=== PATIENT | male | born 1960 | race Caucasian/White ===

== ENCOUNTER 2019-07-29 14:34 | Outpatient (CLI) | payer BC ==
[2019-07-29 21:16] VITALS: BP 168/108
--- NOTE | 2019-07-29 21:16 | SLEEP CARE CONSULTATION ---
Information from patient questionnaire entered by Noa Song. I have reviewed and concur with the information entered by Noa Song. This document represents the service I personally performed and the decisions made by me, Carina Arndt MD, [facility]. History of Present Illness Reason for Visit: New patient, Previously diagnosed sleep apnea, sleep apnea on CPAP therapy Chief Complaint: reports: Other (renew precription) Duration of Symptoms: 20 years Usual bedtime: 2100 Time it takes to fall asleep: 15 minutes Snores at night: Yes Observed to quit breathing while asleep: Yes Sleeps alone due to snoring: No Number of times waking at night: 0-1 Reasons for waking at night: reports: Other (yes, if i do not use CPAP) Toss, Turn, or Twitch while sleeping: No Recalls having dreams: Yes Usually gets out of bed at: 0500 Feels refreshed in the morning: Yes Morning headache: No Sleepy or fatigued during the day: No Ever fallen asleep while driving: No Takes day naps: No Dreams during day naps: No Prior sleep studies: Yes Year and Where: 2009 Additional HPI information: I had the pleasure of seeing Mr. Townsend today regarding obstructive sleep apnea-hypopnea. As you know, he is a 58 year old gentleman who was diagnosed with the sleep-disordered breathing at [place], [place] in 2009. The AHI was 74. He was prescribed a CPAP device set at 7 12 cmH2O. He uses every night and all night. The compliance data show usage in 175 out of the past 180 nights, averaging 7.4 hours a night. The residual AHI is 2.8 and average time in large leak per day is 19 seconds. He wears a ResMed Quattro full face mask. He gets his supplies from a durable medical supplier in [place]. He finds the treatment very beneficial. 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 Patient is and lives in [place]. Have you smoked in the past 12 months: No Alcohol use: Yes Alcohol amount and frequency: 1-2/day Caffeine use: Yes Caffeine amount and frequency: 2 black tea/day Family History Family history of sleep disordered breathing: Yes Allergies and Home Medications Drug allergies reviewed: Yes Home medication list reviewed: Yes Review of Systems Weight gain over past 5 years: 20 Cardiovascular: denies: high blood pressure, palpitations, chest pain, irregular heart rate or pulse, leg or foot swelling, have to sleep sitting up, other Respiratory: denies: shortness of breath, wheeze, sputum production, chronic cough, other Gastrointestinal: reports: heartburn, diarrhea Urinary: denies: incontinence, frequency, urgency, impotence, other Neurological: reports: headaches Psychiatric: denies: Attention Deficit Hyperactivity, anxiety, depression, mood disorder, claustrophobia, other Ear/Nose/Throat: reports: nasal congestion, sinus problems Endocrine: denies: thyroid disease, history of goiter, sluggishness, too hot or cold, excessive thirst, increased appetite, increased urination, unexplained weakness, other Musculoskeletal: denies: joint pain, neck pain, back pain, joint swelling, muscle pain or cramping, mobility problems, other Immunologic: reports: sneezing, allergies to food or environment Physical Exam Vital signs obtained and entered by: Dr. Carina Arndt Blood Pressure: 168/108 Cuff size: regular Heart Rate: 63 O2 Saturation: 95 Height: 6 ft 3 in Weight: 265 lb Body Mass Index: 33.1 BMI Classification: Obesity Class 1 Neck circumference: 18.5 Mood/affect: normal HEENT: No craniofacial malformation Nostrils: patent to airflow Turbinates: normal Septum: midline Mouth and throat: narrow oropharynx Soft palate: long Hard palate: normal Uvula: normal Uvula visualization: 50% Mallampati Class II Tongue: normal in size Tonsils: small Chin and jaw: normal size and position Neck: normal w/o lymphadenopathy or thyromegaly Heart: regular rate and rhythm Lungs: clear bilaterally Abdomen: soft, non-tender Extremities: no edema or clubbing Neurologic: intact, no focal deficits Impression and Plan IMPRESSION: 1. Obstructive Sleep Apnea-Hypopnea Syndrome, very severe, as previously diagnosed. The patient has had good treatment compliance. The current pressure setting appears effective and comfortable. The patient experiences improvement on the treatment. Narrow oropharynx and obesity are common predisposing factors for obstructive sleep apnea-hypopnea syndrome. Because the CPAP is now older than the useful life of 5 years, I will order the patient a new one and make it an autoCPAP set between 7 and 12 cmH2O. Plan: 1. Prescription made for an autoCPAP, heated humidifier, and related supplies. 2. Avoid long distance driving or when feeling sleepy. 3. Avoid alcohol, sedative and muscle relaxant around bedtime. 4. Attempt to lose weight. I spent 100% of this 20 minute visit face to face with the patient with greater than 50% of this was spent time counseling the patient and coordination of care.
== END 2019-07-29 14:35 | disposition home or self-care (01) ==
LOC: SC 14:34
PROVIDERS: ATTEND Internal Medicine Pulmonary Disease
DX: G47.33 Obstructive sleep apnea (adult) (pediatric) (principal)
CPT/HCPCS: 99203; 99212

== ENCOUNTER 2020-08-06 08:23 | Outpatient (CLI) | payer OTHER ==
--- NOTE | 2020-08-06 09:07 | SLEEP CARE CONSULTATION ---
Information from patient questionnaire entered by Ledy Hemphill. I have reviewed and concur with the information entered by Ledy Hemphill. This document represents the service I personally performed and the decisions made by , Stephany Yuen ARNP. History of Present Illness Service Date and Time: 08/06/2020822 Previous diagnosis: Very Severe, Obstructive Sleep Apnea-Hypopnea Syndrome AHI: 74 (in 2007) Reason for follow up: first compliance after device update Equipment type: CPAP Equipment obtained from: [employer] (getting supplies as needed) Mask style: Full face Mask brand: Resmed Backup mask available: Yes (old mask) Last cushion change: 2 months ago Prior sleep studies: Yes Year and Where: 2007 - in [place], [place] HPI additional information: JOHN MCCRACKEN was diagnosed to have very severe, AHI 74, obstructive sleep apnea-hypopnea syndrome and returned today for CPAP therapy first compliance after device update follow-up. CPAP Compliance Data - Data Reviewed with Patient Average duration of nightly device use: 7 hr 29 min Compliance rate %: 100 Current pressure setting (cmH2O): 7-12 Humidity settin Heated hose settin Average residual AHI: 3.6 Average large leak: 0 Subjective Patient concerns: reports: other (feels stuffy ). denies: aerophagia, mask discomfort, air blowing in eyes, mask leak noise, condensation in mask/hose, nasal congestion, dry mouth, nose, throat, epistaxis Observed to snore while using device: No Current pressure setting perceived as: comfortable On therapy, patient: reports: sleeping better, awakening more refreshed, being more awake and alert during the day, more rested overall. denies: drowsiness while driving Initial [place] Sleepiness Scale score: 2 (in 2019) Current [place] Sleepiness Scale score: 5 Allergies and Home Medications Drug allergies reviewed: Yes (NKDA) Home medication list reviewed: Yes (no changes) Review of Systems Review of systems same as previous: Yes (no changes) Physical Exam Heart Rate: 65 O2 Saturation: 94 Height: 6 ft 3 in Weight: 267 lb Body Mass Index: 33.3 BMI Classification: Obese Impression and Plan 1. Obstructive Sleep Apnea-Hypopnea Syndrome, very severe, with excellent treatment compliance and good apnea control. On CPAP therapy, the patient has better sleep quality and is more rested overall. He is doing well with the new machine. He asked about adjusting the humidity setting and I verbally discussed how to adjust on hew machine. He was encouraged to YouTube instructions if unable to do from my instructions. He voiced understanding. Patient's apnea severity and rationale for treatment to reduce apnea, improve sleep quality and reduce cardiovascular and cerebrovascular events was reviewed. I also reviewed the benefit of consistent device use of CPAP for his gastric reflux. * Continue auto CPAP pressure at 7-12 cmH2O * Notify me if snoring with mask or feeling that the pressure is too much or too little * Attempt to lose weight * Call this office if any problems using CPAP * Return for follow up in 1 year, or sooner if concerns arise Counseling Topics: Spare mask, Weight loss health impact Visit Type: In Office Time Spent with Patient (minutes): 15 Provider Statement: I spent 100% of the Face to Face Visit with the patient with greater than 50% spent counseling the patient and coordination of care.
== END 2020-08-06 08:24 | disposition home or self-care (01) ==
LOC: SC 08:23
PROVIDERS: ATTEND Nurse Practitioner Family
DX: G47.33 Obstructive sleep apnea (adult) (pediatric) (principal); E66.9 Obesity, unspecified; Z68.30 Body mass index [BMI] 30.0-30.9, adult
CPT/HCPCS: 99212; 99213

== ENCOUNTER 2022-11-09 08:26 | Outpatient (CLI) | payer BC ==
[2022-11-09 08:59] VITALS: BP 110/70
--- NOTE | 2022-11-09 08:59 | SLEEP CARE CONSULTATION ---
Information from patient questionnaire entered by Nadia Corral. I have reviewed and concur with the information entered by Nadia Corral. This document represents the service I personally performed and the decisions made by , Stephany Yuen ARNP. History of Present Illness Service Date and Time: 11/09/2022825 Previous diagnosis: Very Severe, Obstructive Sleep Apnea-Hypopnea Syndrome AHI: 74 (in 2007) Reason for follow up: annual (LAST SEEN 07/2020) Equipment type: CPAP (GASTELUM Dreamstation recertified; s/u 05/2026) Equipment obtained from: [employer] (getting supplies as needed) Mask style: Full face Mask brand: Resmed (Mirage Quattro) Backup mask available: Yes (old mask) Last cushion change: couple months Prior sleep studies: Yes Year and Where: 2007 - in [place], [place] HPI additional information: JOHN MCCRACKEN was diagnosed to have very severe, AHI 74.0, obstructive sleep apnea-hypopnea syndrome and returned today for CPAP therapy annual follow-up. Sleep Study - Results Prior sleep studies: Yes Year and Where: 2007 - in [place], [place] CPAP Compliance Data - Data Reviewed with Patient Average duration of nightly device use: 7 HRS 18 MINS 45SECS Compliance rate %: 86.1 (05/11/22-11/06/22; 157/180 days used) Current pressure setting (cmH2O): 7-12 Average residual AHI: 3.4 Central apnea: 0.1 Obstructive apnea: 0.9 Hypopnea: 2.4 Subjective Missed days of use due to: reports: travel (he used his old CPAP when travelling) Patient concerns: denies: aerophagia, air blowing in eyes, mask leak noise, condensation in mask/hose, nasal congestion, dry mouth, nose, throat, epistaxis Observed to snore while using device: No Current pressure setting perceived as: comfortable On therapy, patient: reports: sleeping better, awakening more refreshed, being more awake and alert during the day, more rested overall. denies: drowsiness while driving Initial [place] Sleepiness Scale score: 2 (in 2019) Current [place] Sleepiness Scale score: 4 (11/09/22) Allergies and Home Medications Known drug allergies: No Drug allergies reviewed: Yes Home medication list reviewed: No (no changes) Review of Systems Review of systems same as previous: No (Hernia) Physical Exam Vital signs obtained and entered by: NADIA Oropeza MA Blood Pressure: 110/70 (LEFT ARM) Cuff size: regular Heart Rate: 80 O2 Saturation: 98 Height: 6 ft 3 in Weight: 260 lb 12.8 oz Weight change since last visit: 7 lb loss Body Mass Index: 32.5 BMI Classification: Obese Impression and Plan 1. Obstructive Sleep Apnea-Hypopnea Syndrome, very severe, with good treatment compliance and good apnea control. On CPAP therapy, the patient has better sleep quality and is more rested overall. Patient has significant improvement of their sleep apnea and is satisfied with current CPAP therapy. Patient would like to purchase a Travel CPAP. He knows that insurance does not cover these because he has talked to his DME who informed him of this. I will write a prescription for the Travel CPAP and give this to the patient. Patient's apnea severity and rationale for treatment to reduce apnea, improve sleep quality and reduce cardiovascular and cerebrovascular events was reviewed. I also reviewed the benefit of consistent device use of CPAP for gastric reflux. 2. Obesity, unspecified. Currently patients BMI is 32.5. He lost 7 pounds since his last visit. He retired and started working out at gym. He developed a hernia and has to stop until after surgery. Obesity increases the risk of apnea, CPAP pressure requirements and overall health risks especially cardiovascular and diabetes. Thus patient is advised to lose weight. * Continue auto CPAP pressure at 7-12 cmH2O * Prescription for Travel CPAP * Update supplies * Notify me if snoring with mask or feeling that the pressure is too much or too little * Attempt to lose weight * Call this office if any problems using CPAP * Return for follow up in 1 year, or sooner if concerns arise Counseling Topics: Spare mask, Weight loss health impact Visit Type: In Office Time Spent with Patient (minutes): 20 Provider Statement: I spent 100% of the Face to Face Visit with the patient with greater than 50% spent counseling the patient and coordination of care.
== END 2022-11-09 08:27 | disposition home or self-care (01) ==
LOC: SC 08:26
PROVIDERS: ATTEND Nurse Practitioner Family
DX: G47.33 Obstructive sleep apnea (adult) (pediatric) (principal); E66.9 Obesity, unspecified; Z68.32 Body mass index [BMI] 32.0-32.9, adult
CPT/HCPCS: 99212; 99213

== ENCOUNTER 2023-01-22 07:00 | Outpatient (CLI) | payer BC ==
--- NOTE | 2023-01-23 00:32 | XRAY Report ---
PROCEDURE: Foot 3 View LT INDICATIONS: REPETITIVE STRAIN INJURY OF LEFT FOOT TECHNIQUE: 3 views of the foot were acquired. COMPARISON: None. FINDINGS: Bones: No acute fractures or dislocations. No suspicious bony lesions. Small posterior calcaneal enthesophyte. Soft tissues: No suspicious soft tissue calcifications or masses. IMPRESSION: No acute osseous abnormality. If symptoms persist or there is continued clinical concern, further milton luation with MRI or CT may be helpful. Reviewed by: Pardeep Jaimes MD on 01/23/2023 12:30 AM PDT Approved by: Pardeep Jaimes MD on 01/23/2023 12:30 AM PDT Station ID: [id number]
== END 2023-01-22 23:59 | disposition home or self-care (01) ==
LOC: DI.S 07:00
PROVIDERS: ATTEND Physician Assistant Medical
DX: M70.972 Unspecified soft tissue disorder related to use, overuse and pressure, left ankle and foot (principal)